=== PATIENT | male | born 1960 | race African-American/Black ===

== ENCOUNTER → 2016-08-10 | Outpatient (CLI) | payer OTHER ==
[~2016-08-10] MED LIST: NAPROSYN; NORCO 325 MG-51 TAB PO; ZOCOR
== END ==
LOC: COL.RAD 09:26
DX: Z02.71 Encounter for disability determination (principal); M51.36 Other intervertebral disc degeneration, lumbar region; M54.5 Low back pain; M41.86 Other forms of scoliosis, lumbar region; Z96.643 Presence of artificial hip joint, bilateral

== ENCOUNTER → 2019-10-11 | Outpatient (CLI) | payer MEDICARE | LOC: ZCOL.LAB 16:50 | DX: Z01.89 Encounter for other specified special examinations (principal) ==

== ENCOUNTER → 2019-12-27 | Outpatient (CLI) | payer MEDICARE, BC | LOC: ZCOL.LAB 16:57 | DX: H92.12 Otorrhea, left ear (principal) ==